=== PATIENT | male | born 1985 | race Caucasian/White ===

== ENCOUNTER 2016-09-24 21:42 | Emergency (ER) | payer OTHER ==
[~2016-09-24] VITALS: Ht 182.9 cm; Wt 94.7 kg
[2016-09-24 21:52] VITALS: BP 143/88
== END 2016-09-24 23:55 | disposition home or self-care (01) ==
LOC: ED 21:50
DX: K08.89 Other specified disorders of teeth and supporting structures (principal)
CPT/HCPCS: 99283